=== PATIENT | male | born 1950 | race Caucasian/White ===

== ENCOUNTER 2022-04-16 16:17 | Inpatient (IN) | payer MEDICARE, OTHER ==
[~2022-04-16] VITALS: Ht 172.7 cm; Wt 44.0 kg
[2022-04-16 17:25] LABS: HEMATOCRIT 33.4 % (36.7-47.1); MEAN CORPUSCULAR HEMOGLOBIN 30.4 uug (23.8-33.4); MEAN CORPUSCULAR VOLUME 88.9 fL (73.0-96.2); PLATELET COUNT (AUTO) 168 K/uL (152-348)
[2022-04-16] MEDS ORDERED: ONDA4TAB5 PO (17:27)
[2022-04-16] MEDS ORDERED: ARIP5TAB10 PO (17:27)
[2022-04-16] MEDS ORDERED: MV-M1TAB18 PO (17:27)
[2022-04-16] MEDS ORDERED: MULT-594 PO (17:27)
[2022-04-16] MEDS ORDERED: SENN8.6T19 PO (17:27)
[2022-04-16] MEDS ORDERED: PANT40TA2 PO (17:27)
[2022-04-16] MEDS ORDERED: ACET-2154 PO (17:27)
[2022-04-16] MEDS ORDERED: MAGN400O6 PO (17:27)
[2022-04-16] MEDS ORDERED: HYDR-4209 PO (17:27)
[2022-04-16] MEDS ORDERED: SERT100T PO (17:27)
[2022-04-16] MEDS ORDERED: BISA10SU61 RC (17:27)
[2022-04-16] MEDS ORDERED: PHOS250T2 PO (17:27)
[2022-04-16] MEDS ORDERED: FERR325T28 PO (17:27)
[2022-04-16] MEDS ORDERED: TEMA15CA5 PO (17:27)
[2022-04-16] MEDS ORDERED: ALBU2.5V13 NEB (17:27)
[2022-04-16] MEDS ORDERED: LORA0.5T48 PO (17:27)
[2022-04-16] MEDS ORDERED: BISA5TAB10 PO (17:27)
[2022-04-16 17:35] LABS: CARBON DIOXIDE 29 mmol/L (21-32); CHLORIDE 103 mmol/L (98-107); CREATININE 0.9 mg/dL (0.6-1.3); GLUCOSE 100 mg/dL (74-106); UREA NITROGEN, BLOOD 19 mg/dL (7-18)
[2022-04-16 17:37] LABS: ETHANOL < 3 MG/DL (0-0)
[2022-04-16 17:40] LABS: ALANINE AMINOTRANSFERASE 12 U/L (16-63); ALKALINE PHOSPHATASE 60 U/L (50-136); ASPARTATE AMINOTRANSFERASE 12 U/L (15-37); BILIRUBIN,TOTAL 1.3 mg/dL (0.2-1.0); TOTAL PROTEIN, SERUM 6.6 g/dL (6.4-8.2)
[2022-04-16 17:46] LABS: ACETAMINOPHEN < 10.0 ug/mL (10-30)
--- NOTE | 2022-04-16 20:05 | NUR ---
Patient unable to provide urine at this time. COVID swab sent to lab.
--- NOTE | 2022-04-16 20:28 | NUR ---
Patient will be going to [place] [facility]
--- NOTE | 2022-04-16 20:42 | NUR ---
Report given to Molly WHITMORE in U
--- NOTE | 2022-04-16 21:19 | NUR ---
Patient taken to MHU via wheelchair in stable condition with personal belongings. Patient in stable conditions, no signs of distress. Molly WHITMORE aware of patients arrival.
[2022-04-16 22:04] VITALS: BP 98/64
--- NOTE | 2022-04-17 00:30 | NUR ---
ADMISSION NOTE: ADMITTED EARLIER A 71 YEARS OLD MALE TO [facility] M[facility] ON A 5150 FOR DTS. PATIENT LIVES AT AN ASSISTED LIVING CALLED "[facility]" IN [facility] PER RECORDS, PATIENTS WAS TRANSPORTED TO [facility] BY FACILITY D/T DEPRESSION PSYCHOSIS AND SI. PER HOLD, PATIENT IS DEPRESSED WITH FLAT AFFECT AND HE THINKS THAT HE HAS BOMB INSIDE HIM. HE IS SUICIDAL WITH A PLAN TO OD. HIS HOLD WILL ON 04/20/22 AT 0015. UPON ADMISSION PATIENT IS A/O X 2 TO 3. HE REFLECTS WHAT IS WRITTEN ON THE HOLD. PATIENT STATED, "I AM SAD AND DEPRESSED, I HEAR VOICES BUT I AM NOT SURE WHAT THEY ARE SAYING. I DON'T WANT TO HARM MYSELF. I AM SAD". PATIENT IS ABLE TO VERBALLY CFS. HIS DENIAL IS CONVINCING. FACE TO FACE ASSESSMENT WAS DONE, PATIENT WAS GIVEN HIS ADVISEMENT WELL HIS BOOKLET FOR PATIENT'S RIGHTS WHEN IN MENTAL HEALTH FACILITIES. PATIENT WAS COOPERATIVE WITH THE ADMISSION PROCESS. HE WAS INFORMED OF THE UNIT RULES, ROOM AND ROOMMATE. WILL CONTINUE TO MONITOR.
[2022-04-17] MEDS ORDERED: BLOOD SUGAR DIAGNOSTIC 1 EACH STRIP VI ONE (01:30)
[2022-04-17] MEDS ORDERED: ACETAMINOPHEN 325 MG TABLET PO PRN (01:30)
[2022-04-17] MEDS ORDERED: MAG HYDROX/AL HYDROX/SIMETH 30 ML LIQUID UDC PO PRN (01:30)
[2022-04-17 07:30] VITALS: BP 102/59
[2022-04-17] MEDS: DIVALPROEX SPRINKLE 125 MG CAP.SPRINK PO SCH ×2 (12:48→16:46)
[2022-04-17] MEDS: SERTRALINE HCL 50 MG TABLET PO SCH (12:49)
[2022-04-17] MEDS: risperiDONE 0.5 MG TABLET PO SCH ×2 (12:49→16:46)
[2022-04-17] MEDS ORDERED: MAGNESIUM HYDROXIDE 30 ML LIQUID UDC PO PRN (15:00)
[2022-04-17] MEDS ORDERED: ONDANSETRON HCL 4 MG TABLET PO PRN (15:00)
[2022-04-17] MEDS ORDERED: BISACODYL 10 MG SUPP.RECT RC PRN (15:00)
--- NOTE | 2022-04-17 15:07 | NUR ---
JOHN Initial Discharge Note: Pt currently resides at an assisted living located at [address] [place] [address] ([phone]). JOHN will continue to work on contacting pt's assisted living to discuss pt's discharge plan. JOHN will continue to work with pt, family and MD to ensure a safe and proper discharge plan.
--- NOTE | 2022-04-17 15:10 | NUR ---
SW Family Contact: No family contact at this time. SW will continue to follow-up.
[2022-04-17 16:00] VITALS: BP 95/73
--- NOTE | 2022-04-17 16:06 | NUR ---
Firearms Report: Combined Rail Operator completed and submitted a [employer] firearms report for 5150 a danger to himself. A copy of report has been placed in patient chart.
[2022-04-17] MEDS ORDERED: [UNRECOGNIZED DRUG - OTHER] PO SCH (17:00)
--- NOTE | 2022-04-17 17:49 | NUR ---
RECEIVED PT IN ROOM ISOLATIVE WITH A FLAT AFFECTIVE DENIES SUCIDAL IDEATION BUT STAYS ONLY IN HIS ROOM NO SIGNS OF DISTRESS NOTED DENIES PAIN. BUT IS MEDICATION COMPLIANT.
[2022-04-17 20:13] VITALS: BP 92/58
[2022-04-17] MEDS: FERROUS SULFATE 325 MG TABEC PO SCH (20:24)
[2022-04-18] MEDS: PANTOPRAZOLE SODIUM 40 MG TABLET.DR PO SCH (06:03)
--- NOTE | 2022-04-18 06:13 | NUR ---
patirnt remain calm and cooperative with meds and care. slept 7.15 hrs through the night. no agitation noted. resting in bed comfortably. continue plan of care.
[2022-04-18 08:01] VITALS: BP 92/63
[2022-04-18 08:03] LABS: HEMATOCRIT 35.3 % (36.7-47.1); MEAN CORPUSCULAR HEMOGLOBIN 29.8 uug (23.8-33.4); MEAN CORPUSCULAR VOLUME 90.4 fL (73.0-96.2); PLATELET COUNT (AUTO) 54 K/uL (152-348)
[2022-04-18 08:12] LABS: CREATININE 0.9 mg/dL (0.6-1.3); MAGNESIUM 2.2 mg/dL (1.8-2.4); PHOSPHOROUS 2.7 mg/dL (2.5-4.9); POTASSIUM 3.9 mmol/L (3.5-5.1)
[2022-04-18] MEDS: DIVALPROEX SPRINKLE 125 MG CAP.SPRINK PO SCH ×3 (08:22→16:18)
[2022-04-18] MEDS: MULTIVITAMINS,THERAPEUTIC TABLET PO SCH (08:22)
[2022-04-18] MEDS: risperiDONE 0.5 MG TABLET PO SCH ×3 (08:22→16:18)
[2022-04-18] MEDS: FERROUS SULFATE 325 MG TABEC PO SCH ×2 (08:22→21:32)
[2022-04-18 08:32] LABS: THYROID STIMULATING HORMONE 5.417 mIU/mL (0.358-3.740)
[2022-04-18] MEDS: SERTRALINE HCL 50 MG TABLET PO SCH (12:12)
--- NOTE | 2022-04-18 13:41 | NUR ---
GPS: Nursing Notes: Mood Disturbance: Depression: Patient is awake and responding to his name, isolative and withdrawn in his room, no interactions with peers, low energy level, compliant with his medications, poor appetite, resistant with nursing care, unable to formulate a viable plan for self care, verbally jairo for safety, denies SI at this time, continue to monitor for safety, refusing to participate in therapeutic groups, continue with treatment plan.l
[2022-04-18] MEDS: ENSURE ENLIVE (VAN) 240 ML LIQUID PO SCH (16:19)
[2022-04-18 16:21] VITALS: BP 98/63
[2022-04-18 20:00] VITALS: BP 110/54
--- NOTE | 2022-04-18 20:00 | NUR ---
RECEIVED PATIENT IN HIS ROOM IN BED. HE IS NOTED AWAKE A/O X 2 TO 3. HIS MOOD IS LOW, AFFECT IS FLAT. HE APPEARS DEPRESSED. HE IS WITHDRAWN AND ISOLATIVE. PATIENT IS GUARDED. MINIMAL WORDS AND INTERACTION WITH THIS DEPOSIT CLERK. HOWEVER, HE IS ABLE TO MAKE EYE CONTACT AND WHEN ASKED IF HE WAS HAVING SI HE STATED, "NO". HE ALSO DENIED HI/VH/AH. PATIENT IS REASSURED FOR HIS SAFETY. SAFETY AND FALL PRECAUTIONS ARE IN PLACE. HIS V/S ARE STABLE. HE WAS GIVEN PO FLUIDS AND SNACKS, BUT HE ONLY HAD FEW SIPS OF ENSURE. PATIENT WAS ENCOURAGE TO EAT MORE AND TO GET OUT OF THE ROOM AND WALK AROUND AND PARTICIPATE IN ACTIVITIES. ALL HIS NEEDS ARE MET. WILL CONTINUE TO MONITOR.
[2022-04-19] MEDS: PANTOPRAZOLE SODIUM 40 MG TABLET.DR PO SCH (06:16)
[2022-04-19 07:52] VITALS: BP 90/52
[2022-04-19 07:52] LABS: HEMATOCRIT 30.8 % (36.7-47.1); MEAN CORPUSCULAR HEMOGLOBIN 29.9 uug (23.8-33.4); MEAN CORPUSCULAR VOLUME 90.2 fL (73.0-96.2); PLATELET COUNT (AUTO) 214 K/uL (152-348)
[2022-04-19 08:10] LABS: CREATININE 1.1 mg/dL (0.6-1.3); MAGNESIUM 2.3 mg/dL (1.8-2.4); PHOSPHOROUS 2.7 mg/dL (2.5-4.9)
[2022-04-19] MEDS: FERROUS SULFATE 325 MG TABEC PO SCH ×2 (08:36→20:17)
[2022-04-19] MEDS: DIVALPROEX SPRINKLE 125 MG CAP.SPRINK PO SCH ×3 (08:36→16:32)
[2022-04-19] MEDS: MULTIVITAMINS,THERAPEUTIC TABLET PO SCH (08:36)
[2022-04-19] MEDS: risperiDONE 0.5 MG TABLET PO SCH ×3 (08:36→16:31)
[2022-04-19] MEDS: ENSURE ENLIVE (VAN) 240 ML LIQUID PO SCH ×2 (08:37→16:32)
[2022-04-19] MEDS ORDERED: levETIRAcetam 500 MG TABLET PO ONE (10:30)
--- NOTE | 2022-04-19 11:23 | NUR ---
GPS: Nursing Notes: Mood Disturbance: Depression: Patient is awake and responding to his name, depressed mood and flat affect, isolative and withdrawn in his room, low energy level, poor appetite, no interactions with staff or peers, resistant with nursing care, poor grooming, unkempt appearance, unable to formulate a viable plan for self care, compliant with his medications, denies SI, continue to monitor for safety, continue with treatment plan.
[2022-04-19] MEDS: SERTRALINE HCL 50 MG TABLET PO SCH (13:10)
[2022-04-19] MEDS: MAGNESIUM HYDROXIDE 30 ML LIQUID UDC PO PRN (16:32)
[2022-04-19] MEDS: BISACODYL 5 MG TABLET.DR PO PRN (16:32)
[2022-04-19 16:35] VITALS: BP 90/62
[2022-04-19 19:50] VITALS: BP 92/54
--- NOTE | 2022-04-19 21:00 | NUR ---
RECEIVED PATIENT IN HIS ROOM IN BED. HE IS NOTED AWAKE A/O X 2 TO 3. HE IS ABLE TO VERBALIZED HIS FEELINGS. HE APPEARS DEPRESSED. HE CONTINUE WITHDRAWN AND ISOLATIVE. PATIENT IS SUSPICIOUS, POOR APPETITE, IMPAIRED JUDGMENT. WHEN GIVEN ENSURED HE STATED, "THIS ENSURE IS NOT SAFE TO DRINK". PATIENT WAS REDIRECTED AND ORIENTED TO REALITY, YET REFUSED TO DRINK EVEN WHEN ANOTHER ENSURE WERE OFFERED. HIS AFFECT IS FLAT, MOOD IS LOW. PATIENT STATED THAT HE DOES HEAR VOICES BUT HE CAN'T TELL WHAT THEY ARE SAYING. HE IS REASSURED FOR HIS SAFETY. SAFETY AND FALL PRECAUTIONS ARE IN PLACE. HIS V/S ARE STABLE. HE WAS GIVEN PO FLUIDS AND SNACKS, BUT HE ONLY HAD ONE CRACKER. ALL HIS NEEDS ARE MET. WILL CONTINUE TO MONITOR.
[2022-04-20] MEDS: SENNOSIDES 1 TABLET PO PRN (04:13)
[2022-04-20] MEDS: PANTOPRAZOLE SODIUM 40 MG TABLET.DR PO SCH (07:02)
[2022-04-20 07:59] VITALS: BP 91/58
[2022-04-20] MEDS: DIVALPROEX SPRINKLE 125 MG CAP.SPRINK PO SCH ×3 (08:40→17:12)
[2022-04-20] MEDS: MULTIVITAMINS,THERAPEUTIC TABLET PO SCH (08:40)
[2022-04-20] MEDS: risperiDONE 0.5 MG TABLET PO SCH (08:40)
[2022-04-20] MEDS: FERROUS SULFATE 325 MG TABEC PO SCH ×2 (08:40→20:36)
[2022-04-20] MEDS: ENSURE ENLIVE (VAN) 240 ML LIQUID PO SCH ×2 (08:41→17:00)
[2022-04-20] MEDS ORDERED: levETIRAcetam 500 MG TABLET PO SCH (09:00)
[2022-04-20] MEDS: LORAZEPAM 0.5 MG TABLET PO SCH ×3 (11:14→17:12)
[2022-04-20 11:51] LABS: CREATININE 1.2 mg/dL (0.6-1.3); MAGNESIUM 2.6 mg/dL (1.8-2.4); PHOSPHOROUS 2.8 mg/dL (2.5-4.9); POTASSIUM 3.8 mmol/L (3.5-5.1); TOTAL PROTEIN, SERUM 7.1 g/dL (6.4-8.2)
[2022-04-20] MEDS: risperiDONE-M 0.5 MG TAB.RAPDIS PO SCH ×2 (12:48→17:12)
[2022-04-20] MEDS: VENLAFAXINE XR 75 MG TAB.ER.24H PO SCH (12:48)
[2022-04-20 16:04] VITALS: BP 117/96
--- NOTE | 2022-04-20 17:35 | NUR ---
GPS: Nursing Notes: Mood Disturbance: Depression: Patient is awake and responding to his name, depressed mood and flat affect, resistant with nursing care, low energy level, unable to formulate a viable plan for self care, isolative and withdrawn, present in therapeutic groups, but not participating, gets easily irritable when redirected, resistant with nursing care, continue with treatment plan.
[2022-04-20 19:40] VITALS: BP 95/55
[2022-04-20] MEDS: TEMAZEPAM 7.5 MG CAPSULE PO PRN (20:36)
--- NOTE | 2022-04-21 05:44 | NUR ---
GPS NOTES: Received pt. in the gerichair for safety near the nursing station, he is A&0x3, he is pleasant upon approached. He is thin and frail looking, attempt to stand but unable d/t weakness. Patient reminded of his capabilities. Patient offered snacks and fluids, he is compliant and consumes 100% of snacks provided. Patient needs assistance to his ADL's. Patient denies SI and contract safety strategies with the fha underwriter. He is med compliant. Temazepam given. Effective. Patient slept well during shift. No distress noted. Closely monitoring observed.
[2022-04-21] MEDS: PANTOPRAZOLE SODIUM 40 MG TABLET.DR PO SCH (06:19)
[2022-04-21 07:53] LABS: HEMATOCRIT 32.4 % (36.7-47.1); MEAN CORPUSCULAR VOLUME 88.2 fL (73.0-96.2); PLATELET COUNT (AUTO) 246 K/uL (152-348)
[2022-04-21 08:00] VITALS: BP 101/64
[2022-04-21 08:11] LABS: MAGNESIUM 2.4 mg/dL (1.8-2.4); PHOSPHOROUS 2.3 mg/dL (2.5-4.9)
[2022-04-21] MEDS: risperiDONE-M 0.5 MG TAB.RAPDIS PO SCH ×3 (09:32→16:55)
[2022-04-21] MEDS: DIVALPROEX SPRINKLE 125 MG CAP.SPRINK PO SCH ×3 (09:32→16:55)
[2022-04-21] MEDS: MULTIVITAMINS,THERAPEUTIC TABLET PO SCH (09:32)
[2022-04-21] MEDS: LORAZEPAM 0.5 MG TABLET PO SCH ×3 (09:32→16:56)
[2022-04-21] MEDS: FERROUS SULFATE 325 MG TABEC PO SCH ×2 (09:32→21:09)
[2022-04-21] MEDS: ENSURE ENLIVE (VAN) 240 ML LIQUID PO SCH ×2 (09:33→16:58)
--- NOTE | 2022-04-21 11:23 | NUR ---
JOHN Family Contact: JOHN contacted pt' niece, Breanne ([phone]) and left a voicemail for a call back. JOHN will continue to follow-up with Breanne.
[2022-04-21] MEDS: VENLAFAXINE XR 75 MG TAB.ER.24H PO SCH (12:57)
--- NOTE | 2022-04-21 14:17 | NUR ---
GPS: Nursing Notes: Mood Disturbance: Depression: Patient is awake and responding to his name, A/Ox3, cooperative with nursing care, his appetite has increased, eating his meals, depressed mood and blunted affect, selectively compliant with his medications at 1 PM, stated "I think.. I am getting too many pills.." Explained the pros and cons of medications, but continue to be selectively compliant with Effexor, unable to formulate a viable plan for self care, ambulatory with fww, stated "Those pills in the morning made me weak..", participate in therapeutic groups, needs assistance with ADL's, verbally jairo for safety, denies SI, continue to monitor for safety, continue with treatment plan.
[2022-04-21 16:00] VITALS: BP 105/65
[2022-04-21] MEDS ORDERED: NEUTRA PHOS PACKET PO ONE (16:30)
[2022-04-21 19:52] VITALS: BP 99/57
[2022-04-21] MEDS: BISACODYL 5 MG TABLET.DR PO PRN (21:09)
--- NOTE | 2022-04-22 02:32 | NUR ---
Patient was c/o different things at the start of the shift . Constipation, food, incontinence, inability to empty the bladder, overactive bladder and so on. This gag writer brought the patient out of the room in a hu- chair and shaved the patient, plus encouraged oral hydration with assistance. The patient did verbalize not wanting to live on minute , then stated " I do not want to , I want to keep living." Many times during the conversation ,with this gag writer, the patient contradicted himself. Safety Stratiges are in place at this time. A verbal contract for safety was made between the patient and this gag writer. Continuing to assist the patient with all ADLs and feedings. The patient has been compliant with medications.
[2022-04-22] MEDS: PANTOPRAZOLE SODIUM 40 MG TABLET.DR PO SCH (06:18)
[2022-04-22 07:30] VITALS: BP 104/66
[2022-04-22] MEDS: LORAZEPAM 0.5 MG TABLET PO SCH ×3 (09:26→17:42)
[2022-04-22] MEDS: MULTIVITAMINS,THERAPEUTIC TABLET PO SCH (09:27)
[2022-04-22] MEDS: risperiDONE-M 0.5 MG TAB.RAPDIS PO SCH ×3 (09:27→17:42)
[2022-04-22] MEDS: FERROUS SULFATE 325 MG TABEC PO SCH ×2 (09:27→20:15)
[2022-04-22] MEDS: DIVALPROEX SPRINKLE 125 MG CAP.SPRINK PO SCH ×3 (09:28→17:42)
[2022-04-22] MEDS: ENSURE ENLIVE (VAN) 240 ML LIQUID PO SCH ×2 (09:29→17:42)
--- NOTE | 2022-04-22 13:00 | NUR ---
Patient had court hearing today, and enrollment management coordinator gave 14 Day probable cause for GD only.
[2022-04-22 13:06] LABS: A/G RATIO 1.4 (0.7-1.7); ALBUMIN 3.4 g/dL (2.9-4.4); ALPHA-1-GLOBULIN 0.2 g/dL (0.0-0.4); ALPHA-2-GLOBULIN 0.7 g/dL (0.4-1.0); BETA GLOBULIN 0.8 g/dL (0.7-1.3); GAMMA GLOBULIN 0.7 g/dL (0.4-1.8); GLOBULIN, TOTAL 2.4 g/dL (2.2-3.9); M-SPIKE Not Observed g/dL (Not Observed)
[2022-04-22] MEDS: VENLAFAXINE XR 75 MG TAB.ER.24H PO SCH (13:20)
[2022-04-22 16:00] VITALS: BP 90/61
--- NOTE | 2022-04-22 18:15 | NUR ---
GPS: Nursing Notes: Mood Disturbance: Depression: Receive patient awake in room,response to his name A/Ox3. Patient continent and incontinent, needs maximum assistance with ADL's. Patient can walk with 1 person assist and a walker but uses a wheelchair to wheel himself. Patient is depress, stays in his room and refuses to participate in group activities.Patient is compliant with medications but needs a lot of prompting. Patient stayed " I have fecal matter and this medications are going to make it worse", Sorry It was nice knowing you I am going to with this medications".Patient is unable to formulate a viable plan for self care.Unkept appearance.Continue to monitor for safety, continue with treatment plan
[2022-04-22 20:08] VITALS: BP 90/50
--- NOTE | 2022-04-22 20:30 | NUR ---
RECEIVED PATIENT IN HIS ROOM IN BED. HE IS NOTED SLEEPING BUT EASILY AROUSABLE. PATIENT NOTED A/O X 2. HE CONTINUE WITHDRAWN AND ISOLATIVE. PT APPEARS DEPRESSED. WHEN INTERVIEW, HE DENIED SI/HI/VH/AH. HE STATED, "I AM FEELING SLEEPY TODAY". PATIENT'S V/S ARE STABLE. HE IS IN NO DISTRESS. HE IS REASSURED FOR HIS SAFETY. SAFETY AND FALL PRECAUTIONS ARE IN PLACE. HE WAS GIVEN PO FLUIDS AND SNACKS, AND HE WAS ABLE TO HAVE FEW SNACKS. HIS APPETITE IS IMPROVING. ALL HIS NEEDS ARE MET. WILL CONTINUE TO MONITOR.
[2022-04-22] MEDS ORDERED: risperiDONE 1 MG TABLET PO SCH (21:00)
[2022-04-23] MEDS: PANTOPRAZOLE SODIUM 40 MG TABLET.DR PO SCH (07:25)
[2022-04-23 07:30] VITALS: BP 83/51
[2022-04-23 07:51] LABS: HEMATOCRIT 28.3 % (36.7-47.1); MEAN CORPUSCULAR HEMOGLOBIN 30.4 uug (23.8-33.4); MEAN CORPUSCULAR VOLUME 88.6 fL (73.0-96.2); PLATELET COUNT (AUTO) 172 K/uL (152-348)
[2022-04-23 08:02] LABS: CREATININE 0.9 mg/dL (0.6-1.3); MAGNESIUM 1.8 mg/dL (1.8-2.4); PHOSPHOROUS 1.8 mg/dL (2.5-4.9); POTASSIUM 3.6 mmol/L (3.5-5.1)
[2022-04-23] MEDS: LORAZEPAM 0.5 MG TABLET PO SCH ×3 (09:04→17:00)
[2022-04-23] MEDS: DIVALPROEX SPRINKLE 125 MG CAP.SPRINK PO SCH ×3 (09:04→17:00)
[2022-04-23] MEDS: MULTIVITAMINS,THERAPEUTIC TABLET PO SCH (09:05)
[2022-04-23] MEDS: risperiDONE-M 0.5 MG TAB.RAPDIS PO SCH ×3 (09:05→17:00)
[2022-04-23] MEDS: FERROUS SULFATE 325 MG TABEC PO SCH ×2 (09:05→22:08)
[2022-04-23] MEDS: ENSURE ENLIVE (VAN) 240 ML LIQUID PO SCH ×2 (09:07→18:03)
[2022-04-23] MEDS: VENLAFAXINE XR 75 MG TAB.ER.24H PO SCH (12:58)
--- NOTE | 2022-04-23 13:00 | NUR ---
Received Patient awake sitting in bed,depressed,blunted affect. Patient is continent with care,needs maximum assistant corporate controller with ADLs,unkept appearance.Patient is med compliant but needs prompting.Patient does not attend group activities but did had breakfast in the dinning room. Continue to monitor for safety, Continue with treatment plan.
[2022-04-23 16:00] VITALS: BP 85/55
[2022-04-23] MEDS ORDERED: NEUTRA PHOS PACKET PO ONE (16:00)
--- NOTE | 2022-04-23 16:41 | NUR ---
Pt found lying on the floor in the doorway of another pt room. Pt appears confused and disorganized, stated that he was trying to get up to walk to his room. Noted hypotensive with bp of 83/55, noted symptomatic with mild vertigo. Noted skin tear abrasions to left lateral portions of face. No excessive bleeding noted. Pt denies pain or discomfort at this time. Called [facility] and received order for state head CT to r/o bleeding and x1 NS 500cc bolus. Order noted and will carry out. Called and informed pt's point of contact his niece Breanne, and she is notified. Called refrigeration houseman Suzy and she is notified as well. Called. Dr. Luna and she is notifed. In no acute distress.
[2022-04-23] MEDS ORDERED: IV NORMAL SALINE 500 ML IV ONE (17:00)
[2022-04-23 20:03] VITALS: BP 78/48
--- NOTE | 2022-04-23 20:15 | NUR ---
IV INSERTION WAS DONE WITH 22G IV NEEDLE ON RIGHT LOWER FOREARM FOR AND EARLIER ORDER TO INFUSED 500CC NS IV BOLUS. PATIENT WAS COOPERATIVE. HE TOLERATED INSERTION WELL. STILL MISSING IV POLL. CALLED MED SURG FLOOR BUT THEY STARED THEY DON'T HAVE ONE. CALL ER AND THEY DON'T HAVE ONE. CALLED HS EXTENSION AND STAFF STATED THAT HE WILL LET HER KNOW. WILL CONTINUE TO MONITOR.
--- NOTE | 2022-04-23 20:40 | NUR ---
CALLED HS. SHE STATED TO GO CHECKS ICU FOR THEY MAY HAVE AN IV POLE. WENT TO ICU AND AN IV INFUSION PUMP WAS FOUND. WILL BRING TO UNIT, ONCE IS DISINFECTED, TO START IV BOLUS WITH 500CC NS PER MD ORDERED. WILL CONTINUE TO MONITOR CLOSELY.
--- NOTE | 2022-04-23 21:30 | NUR ---
RECEIVED PATIENT SITTING IN A ELLA CHAIR. HE IS NOTED A/O X2. HE IS CALM AND PLEASANT UPON APPROACHED. HE APPEARS DEPRESSED WITH FLAT AFFECT. HE CONTINUE FIXED ON NOT HAVING A BM. HE STATED, "I CAN'T GO. EVERYTHING IS STILL INSIDE. IT WILL COME OUT BIG". PATIENT IS REASSURED AND REDIRECTED. HE NEEDS CONSTANT REALITY ORIENTATION. PT V/S NOTED OM THE LOW SIDE. HE IS ASYMPTOMATIC IN NO DISTRESS. 500CC NS IV FLUIDS IS STARED. PATIENT WAS ALSO GIVEN PO FLUIDS, ENSURED AND WATER, AND SNACKS. HE IS REASSURED FOR HIS SAFETY. SAFETY AND FALL PRECAUTIONS IN PLACE. WILL CONTINUE TO MONITOR.
[2022-04-23 22:00] VITALS: BP 88/74
--- NOTE | 2022-04-23 22:00 | NUR ---
500CC NS IV BOLUS IS DONE, PATIENT TOLERATED WELL. V/S: B/P 88/74 AND PULSE 68BPM. PT IN NO DISTRESS. WILL CONTINUE TO MONITOR.
[2022-04-23] MEDS: BISACODYL 5 MG TABLET.DR PO PRN (22:07)
--- NOTE | 2022-04-23 22:10 | NUR ---
PATIENT WAS GIVEN DULCOLAX PO PRN FOR CONSTIPATION. HE WAS ASSISTED TO THE BATHROOM WHERE HE VOIDED AND HE WAS ASSISTED TO HIS BED. BED ALARM ON. HIS BED WHEELS ARE LOCKED. WILL CONTINUE WITH FREQUENT ROUNDING.
--- NOTE | 2022-04-24 06:04 | NUR ---
Patient slept for approx 7.30. through the night. # abrasions in forehead were cleaned with NS and covered with bandage. patient's B/P is 90/56 and pulse is 64bpm patient is in no distress. Saline locked on his rt forearm was flushed. It is patent and intact. Will continue to monitor.
[2022-04-24] MEDS: PANTOPRAZOLE SODIUM 40 MG TABLET.DR PO SCH (06:51)
[2022-04-24 06:59] LABS: HEMATOCRIT 26.8 % (36.7-47.1); MEAN CORPUSCULAR HEMOGLOBIN 30.3 uug (23.8-33.4); MEAN CORPUSCULAR VOLUME 88.3 fL (73.0-96.2); PLATELET COUNT (AUTO) 171 K/uL (152-348)
[2022-04-24 07:30] VITALS: BP 88/53
[2022-04-24 07:38] LABS: CREATININE 0.8 mg/dL (0.6-1.3); MAGNESIUM 1.8 mg/dL (1.8-2.4)
[2022-04-24] MEDS: DIVALPROEX SPRINKLE 125 MG CAP.SPRINK PO SCH ×3 (09:17→17:10)
[2022-04-24] MEDS: FERROUS SULFATE 325 MG TABEC PO SCH ×2 (09:18→20:40)
[2022-04-24] MEDS: ENSURE ENLIVE (VAN) 240 ML LIQUID PO SCH ×2 (09:18→17:15)
[2022-04-24] MEDS: MULTIVITAMINS,THERAPEUTIC TABLET PO SCH (09:19)
--- NOTE | 2022-04-24 10:05 | NUR ---
JOHN Family Contact: JOHN contacted pt' niece, Breanne ([phone]) and left a second voicemail for a call back regarding pt's discharge plan. JOHN will continue to follow-up with Breanne.
[2022-04-24] MEDS: VENLAFAXINE XR 150 MG CAP.SR.24H PO SCH (12:31)
[2022-04-24] MEDS ORDERED: NEUTRA PHOS PACKET PO ONE (14:00)
--- NOTE | 2022-04-24 14:07 | NUR ---
Gps/Insole Department Worker- Remains up in his hu-chair for safety, fluids offered and encouraged.Monitored vital signs.
[2022-04-24 16:00] VITALS: BP 91/63
--- NOTE | 2022-04-24 16:16 | NUR ---
Gps/Pourer Bull Ladle- Patient's daughter Madyson came to bean picker machine operator car keys(Ernesto baird) , ok'd by patient. Patient waved hello to her daughter by the main door . Madyson(daughter) was able to initial belonging list (Reginald) Addendum: 04/24/22 at 1621 by SANJUANA ALANIZ LVN Error charted on a wrong patient
[2022-04-24] MEDS: SENNOSIDES 1 TABLET PO PRN (20:40)
[2022-04-24] MEDS: OLANZAPINE 2.5 MG TABLET PO SCH (20:43)
[2022-04-24 20:56] VITALS: BP 94/65
--- NOTE | 2022-04-25 04:33 | NUR ---
Patient has richa showing improvement in oral intake of food. No BM noted for many days. Dulcolax suppository given with small results. Stool noted directly inside the rectum. Patient tolerated the procedure well. Dinorah care provided and a Mepilex was applied to the coccyx for protection. No skin breakdown noted. Safety Stratiges are in place. The patient denied SI and made a verbal contract for safety with this software writer. Continuing to monitor intake and output and assist with needs as they arise.
[2022-04-25] MEDS: PANTOPRAZOLE SODIUM 40 MG TABLET.DR PO SCH (06:00)
[2022-04-25 07:38] LABS: CREATININE 0.8 mg/dL (0.6-1.3); MAGNESIUM 1.9 mg/dL (1.8-2.4); PHOSPHOROUS 3.2 mg/dL (2.5-4.9); POTASSIUM 4.3 mmol/L (3.5-5.1)
[2022-04-25 07:40] VITALS: BP 98/68
[2022-04-25 07:42] LABS: MEAN CORPUSCULAR HEMOGLOBIN 30.5 uug (23.8-33.4); MEAN CORPUSCULAR VOLUME 88.4 fL (73.0-96.2); PLATELET COUNT (AUTO) 215 K/uL (152-348)
[2022-04-25] MEDS: DIVALPROEX SPRINKLE 125 MG CAP.SPRINK PO SCH ×3 (09:25→16:56)
[2022-04-25] MEDS: FERROUS SULFATE 325 MG TABEC PO SCH ×2 (09:25→20:41)
[2022-04-25] MEDS: MULTIVITAMINS,THERAPEUTIC TABLET PO SCH (09:27)
[2022-04-25] MEDS: ENSURE ENLIVE (VAN) 240 ML LIQUID PO SCH ×2 (09:28→16:57)
[2022-04-25] MEDS: VENLAFAXINE XR 150 MG CAP.SR.24H PO SCH (12:52)
--- NOTE | 2022-04-25 13:22 | NUR ---
Gps/Nursing- Encouraged to feed self, assisted with her meals, fluids offered and encouraged, compliant with pm routine meds, interacts when engaged, answers to simple question . Stayed in bed most of the morning
[2022-04-25 16:04] VITALS: BP 101/65
[2022-04-25 20:19] VITALS: BP 98/69
[2022-04-25] MEDS: OLANZAPINE 2.5 MG TABLET PO SCH (20:41)
--- NOTE | 2022-04-26 04:06 | NUR ---
Patient has been up and down during the night. Multiple bowel movements. Frequent turning and repositioning done to prevent skin breakdown. Shower given this am. Safety Stratiges are in place. Patient is denying SI at this time. PO food and fluid encouraged.
[2022-04-26] MEDS: PANTOPRAZOLE SODIUM 40 MG TABLET.DR PO SCH ×2 (06:05→06:24)
[2022-04-26 08:17] VITALS: BP 91/47
[2022-04-26] MEDS: DIVALPROEX SPRINKLE 125 MG CAP.SPRINK PO SCH ×3 (08:41→17:13)
[2022-04-26] MEDS: MULTIVITAMINS,THERAPEUTIC TABLET PO SCH (08:41)
[2022-04-26] MEDS: ENSURE ENLIVE (VAN) 240 ML LIQUID PO SCH ×2 (08:42→17:14)
[2022-04-26] MEDS: FERROUS SULFATE 325 MG TABEC PO SCH ×2 (08:42→21:23)
[2022-04-26] MEDS: VENLAFAXINE XR 150 MG CAP.SR.24H PO SCH (12:32)
--- NOTE | 2022-04-26 15:14 | NUR ---
Gps/Axle Inspector-Kept patient in his group activity, poor initiation, assited with his meals, fluids offered and encouraged, hesitancy in taking his routine meds. , flat guarded , answers to simple questions, one step commands
[2022-04-26 16:09] VITALS: BP 96/70
[2022-04-26 19:43] VITALS: BP 101/68
[2022-04-26] MEDS: OLANZAPINE 2.5 MG TABLET PO SCH (21:23)
--- NOTE | 2022-04-27 01:28 | NUR ---
Patient has been paranoid and hearing voices since the start of the shift. Much education and encouragement was needed in order for the patient to take his PM medications. The patient has been refusing fluid and snack tonight. Multiple diaper changes, and frequent rita care provided. Optifoam dressing applied to bony coccyx to prevent breakdown. Safety Stratiges are in place and ongoing monitoring of PO intake and increase in paranoia. No SI at this time.
[2022-04-27] MEDS: PANTOPRAZOLE SODIUM 40 MG TABLET.DR PO SCH ×2 (06:02→06:06)
[2022-04-27 07:48] VITALS: BP 92/49
[2022-04-27] MEDS: MULTIVITAMINS,THERAPEUTIC TABLET PO SCH (08:45)
[2022-04-27] MEDS: FERROUS SULFATE 325 MG TABEC PO SCH ×2 (08:45→20:52)
[2022-04-27] MEDS: DIVALPROEX SPRINKLE 125 MG CAP.SPRINK PO SCH ×3 (08:45→16:18)
[2022-04-27] MEDS: ENSURE ENLIVE (VAN) 240 ML LIQUID PO SCH ×2 (08:46→16:18)
--- NOTE | 2022-04-27 10:12 | NUR ---
SW Family Contact: SW contacted pt' niece, Breanne ([phone]) regarding pt's update and discharge plan. Breanne stated she is the DPOA for the pt and she will email this SW the paperwork. Breanne stated pt currently resides at an Assisted living called [facility] ([phone]) located at [address] [place] [address]. Breanne is aware and agreeable that pt may need a temporary penitentiary facility prior to returning to assisted living. Psychiatrist, Dr. Luna is aware.
--- NOTE | 2022-04-27 10:13 | NUR ---
JOHN Family Contact: JOHN contacted pt' niece, Breanne ([phone]) and discussed pt's discharge plan. Breanne stated she is the DPOA for the pt. Breanne provided her email for this SW to contact her for the DPOA paperwork. Breanne stated pt currently resides at [facility] [phone] where has has lived for 2 years. Breanne is agreeable to a temporary jail facility for the pt if recommended by the psychiatrist prior to returning to [facility]. Breanne also provided an additional contact from the facility, [facility] ([phone]). Breanne stated she lives in [place] but the pt does have siblings in [place], [place]. JOHN informed Breanne this typewriter operator automatic will continue to stay in contact with Breanne. SW informed Breanne on a few details per nursing regarding pt's treatment update. Breanne was grateful.
[2022-04-27] MEDS: VENLAFAXINE XR 150 MG CAP.SR.24H PO SCH (12:31)
--- NOTE | 2022-04-27 12:32 | NUR ---
JOHN Discharge Update: Pt currently resides at an Assisted living called [facility] ([phone]) located at [address] [place] [address]. JOHN spoke with pt's nurse, Adebayo at the assisted [facility] regarding pt's return upon discharge. Adebayo is aware that pt may need a temporary fpc facility prior to return to [facility]. Adebayo agrees and stated she will need to evaluate pt prior to returning back to [facility]. Psychiatrist, Dr. Luna is aware and recommended pt to [facility] for temporary continuation of care post discharge from [facility]. [facility] pharmacy: [facility] ([phone]). Assisted living fax: [phone].
--- NOTE | 2022-04-27 13:48 | NUR ---
GPS: Nursing Notes: Mood Disturbance: Depression: Patient is awake and responding to his name, depressed mood and blunted affect, low energy level, no interactions with peers, isolative and withdrawn at times, minimal participation in therapeutic groups, unable to formulate a viable plan for self care, denies SI, verbally jairo for safety, continue to monitor for safety, ambulatory with fww and assistance, unsteady and weak gait, appetite is poor, unkempt appearance, resistant with nursing care at times, redirected during shift, gets easily irritable when redirected, continue with treatment plan.
[2022-04-27 16:02] VITALS: BP 94/63
[2022-04-27 20:07] VITALS: BP 95/69
[2022-04-27] MEDS ORDERED: OLANZAPINE 2.5 MG TABLET PO SCH (21:00)
[2022-04-27] MEDS ORDERED: OLANZAPINE 5 MG TABLET PO SCH (21:00)
[2022-04-27 21:30] VITALS: BP 98/64
--- NOTE | 2022-04-27 22:00 | NUR ---
RECEIVED PATIENT IN THE DAY ROOM. HE IS NOTED A/O X 1 TO 2. HE IS CALM AND PLEASANT UPON APPROACHED. PATIENT NOTED LESS ISOLATIVE LESS WITHDRAWN. HE CONTINUE WITH DELUSIONAL THINKING. HIS SPEECH IS DISORGANIZED. AFFECT IS BLUNTED, MOOD IS LOW. HE DENIED SI/HI/VH/AH. PATIENT BP IS LOW FORM SBP OF 91 TO 95 TO 99MMHG THE HIGHEST, PT IS ASYMPTOMATIC IN NO DISTRESS. ZYPREXA 5MG PO QHS WAS NOT GIVEN D/T DECREASED BP. HE WAS GIVEN PO FLUIDS AND SNACKS. PT HAD 3 BOTTLES OF ENSURE AND GRAM CRACKERS. HE IS REASSURED FOR HIS SAFETY, SAFETY AND FALL PRECAUTIONS ARE IN PLACE. WILL CONTINUE TO MONITOR.
[2022-04-28] MEDS: PANTOPRAZOLE SODIUM 40 MG TABLET.DR PO SCH (06:18)
[2022-04-28 07:23] VITALS: BP 92/55
[2022-04-28] MEDS: ENSURE ENLIVE (VAN) 240 ML LIQUID PO SCH ×2 (08:11→16:36)
[2022-04-28] MEDS: MULTIVITAMINS,THERAPEUTIC TABLET PO SCH (08:11)
[2022-04-28] MEDS: FERROUS SULFATE 325 MG TABEC PO SCH ×2 (08:11→20:23)
[2022-04-28] MEDS: DIVALPROEX SPRINKLE 125 MG CAP.SPRINK PO SCH ×3 (08:11→16:36)
[2022-04-28] MEDS: VENLAFAXINE XR 150 MG CAP.SR.24H PO SCH (12:37)
--- NOTE | 2022-04-28 15:16 | NUR ---
GPS: Nursing Notes: Mood Disturbance: Depression: Patient is awake and responding to his name, depressed mood, flat affect, poor appetite, resistant with nursing care, no interactions with peers, needs a lot of prompting to participate in therapeutic groups, low energy level, unable to formulate a viable plan for self care, isolative and withdrawn at times, continue to monitor for safety, continue with treatment plan.
[2022-04-28 15:52] VITALS: BP 91/53
[2022-04-28] MEDS: LORAZEPAM 0.5 MG TABLET PO PRN (16:36)
[2022-04-28] MEDS: BISACODYL 5 MG TABLET.DR PO PRN (16:36)
[2022-04-28] MEDS: OLANZAPINE 2.5 MG TABLET PO SCH (20:23)
[2022-04-28 20:41] VITALS: BP 105/77
--- NOTE | 2022-04-28 21:30 | NUR ---
RECEIVED PATIENT IN THE HALLWAY SITTING IN A ELLA CHAIR. HE IS NOTED A/O X 1. HE IS HYPERVERBAL WITH DELUSIONAL THINKING. HE IS NONSENSICAL AT TIMES, HIS SPEECH IS DISORGANIZED. AFFECT IS BLUNTED, MOOD IS LOW. HE IS REASSURED FOR HIS SAFETY. V/S ARE STABLE. PT HAD 1 BOTTLES OF ENSURE. IV SALINE LOCKED PLACED IN RIGHT FOREARM IS INTACT AND PATENT. OPTIFOAM DRESSING ON COCCYX TO PREVENT SKIN BREAKDOWN IS IN PLACE. SAFETY AND FALL PRECAUTIONS ARE IN PLACE. ALL HIS NEEDS ARE MET. WILL CONTINUE TO MONITOR.
[2022-04-29] MEDS: PANTOPRAZOLE SODIUM 40 MG TABLET.DR PO SCH (07:00)
[2022-04-29 07:30] VITALS: BP 97/69
--- NOTE | 2022-04-29 07:51 | NUR ---
patient refused blood drawn and protonix. multiple redirection given yet ineffective.
[2022-04-29] MEDS: MULTIVITAMINS,THERAPEUTIC TABLET PO SCH ×2 (08:47→09:00)
[2022-04-29] MEDS: DIVALPROEX SPRINKLE 125 MG CAP.SPRINK PO SCH ×4 (08:47→17:38)
[2022-04-29] MEDS: FERROUS SULFATE 325 MG TABEC PO SCH ×3 (08:47→20:32)
[2022-04-29] MEDS: ENSURE ENLIVE (VAN) 240 ML LIQUID PO SCH ×2 (08:48→17:39)
[2022-04-29] MEDS: VENLAFAXINE XR 150 MG CAP.SR.24H PO SCH (12:20)
[2022-04-29 13:38] LABS: IRON, SERUM 48 ug/dL (50-175)
[2022-04-29 14:05] LABS: FERRITIN 411 ng/mL (26-388)
--- NOTE | 2022-04-29 14:52 | NUR ---
Received patient sleeping in his room. A/O X 3 to person, place. Patient is withdrawn, depressed, quiet, selective and suspicious with medications, refused them this morning. Patient states "I'm taking too many pills. I don't need them". Patient requires minimal assistance with ADL. Patient is encourage to verbalize concerns. Fall and safety precautions implemented.
--- NOTE | 2022-04-29 15:38 | NUR ---
Patient blood pressure is 88/52, fluids are given, will be monitored for effectiveness.
[2022-04-29 16:00] VITALS: BP 88/52
[2022-04-29] MEDS: LORAZEPAM 0.5 MG TABLET PO PRN (20:32)
[2022-04-29] MEDS: OLANZAPINE 2.5 MG TABLET PO SCH (20:32)
[2022-04-29 21:11] VITALS: BP 90/50
[2022-04-30] MEDS: PANTOPRAZOLE SODIUM 40 MG TABLET.DR PO SCH (07:16)
[2022-04-30 07:30] VITALS: BP 94/56
[2022-04-30] MEDS: DIVALPROEX SPRINKLE 125 MG CAP.SPRINK PO SCH ×3 (09:36→17:35)
[2022-04-30] MEDS: MULTIVITAMINS,THERAPEUTIC TABLET PO SCH (09:37)
[2022-04-30] MEDS: FERROUS SULFATE 325 MG TABEC PO SCH ×2 (09:37→20:35)
[2022-04-30] MEDS: ENSURE ENLIVE (VAN) 240 ML LIQUID PO SCH ×2 (09:37→17:35)
[2022-04-30] MEDS: VENLAFAXINE XR 150 MG CAP.SR.24H PO SCH (12:45)
[2022-04-30 16:00] VITALS: BP 77/52
[2022-04-30 20:19] VITALS: BP 90/56
[2022-04-30] MEDS ORDERED: OLANZAPINE 5 MG TABLET PO SCH (21:00)
--- NOTE | 2022-05-01 06:20 | NUR ---
GPS: Pt.slept 6.30 last night. Remains isolative,withdrawn but denies wanting to harm self. Fluids taken adequately. Med.compliant. Fall precautions observed. Needs attended. Incontinence care provided.
[2022-05-01] MEDS: PANTOPRAZOLE SODIUM 40 MG TABLET.DR PO SCH (06:36)
[2022-05-01 07:30] VITALS: BP 90/64
[2022-05-01] MEDS: FERROUS SULFATE 325 MG TABEC PO SCH ×2 (09:25→20:24)
[2022-05-01] MEDS: MULTIVITAMINS,THERAPEUTIC TABLET PO SCH (09:25)
[2022-05-01] MEDS: DIVALPROEX SPRINKLE 125 MG CAP.SPRINK PO SCH ×3 (09:26→17:38)
[2022-05-01] MEDS: ENSURE ENLIVE (VAN) 240 ML LIQUID PO SCH ×2 (09:27→17:39)
--- NOTE | 2022-05-01 10:53 | NUR ---
JONH Family Contact: SW contacted pt' niece, Breanne ([phone]) and discussed pt's discharge plan to [facility] ([phone]) [address] [place] [address] on Wednesday. Breanne stated she will be providing the DPOA paperwork again by email today. JOHN will continue to update Breanne as needed. Breanne is agreeable and grateful for everything.
[2022-05-01] MEDS: VENLAFAXINE XR 150 MG CAP.SR.24H PO SCH (13:00)
--- NOTE | 2022-05-01 15:07 | NUR ---
Gps/Fur Tinter- Stayed up in his recliner chair during the day, assisted with his meals, fluids encouraged, offered, compliant with routine medications . Stayed in his group activity , interacts when engaged.
[2022-05-01 16:00] VITALS: BP 84/50
[2022-05-01 20:13] VITALS: BP 90/60
[2022-05-01] MEDS: OLANZAPINE 5 MG TABLET PO SCH (20:24)
[2022-05-02] MEDS: REMEDY ESSENTIAL ZINC PASTE 113 GM TOP PRN ×2 (01:45→06:02)
[2022-05-02] MEDS: PANTOPRAZOLE SODIUM 40 MG TABLET.DR PO SCH (06:02)
--- NOTE | 2022-05-02 06:33 | NUR ---
GPS: Pt.slept 6.30 last night. Isolative,passive and remains delusional. Re-assured and re-directed. Denies SI. Fall precautions observed. Fluids/diet inna.well.
[2022-05-02 07:59] VITALS: BP 101/63
[2022-05-02] MEDS: FERROUS SULFATE 325 MG TABEC PO SCH ×2 (08:17→20:27)
[2022-05-02] MEDS: DIVALPROEX SPRINKLE 125 MG CAP.SPRINK PO SCH ×3 (08:17→16:29)
[2022-05-02] MEDS: MULTIVITAMINS,THERAPEUTIC TABLET PO SCH (08:17)
[2022-05-02] MEDS: ENSURE ENLIVE (VAN) 240 ML LIQUID PO SCH ×2 (08:18→16:29)
[2022-05-02] MEDS: VENLAFAXINE XR 150 MG CAP.SR.24H PO SCH (12:34)
[2022-05-02] MEDS: BISACODYL 5 MG TABLET.DR PO PRN (12:34)
--- NOTE | 2022-05-02 14:13 | NUR ---
GPS: Nursing Notes: Mood Disturbance: Depression: Patient is awake and responding to her name, disoriented, depressed mood and flat affect, needs assistance with ADL's, low energy level, resistant with nursing care, gets easily irritable when redirected, unable to formulate a viable plan for self care, continue to monitor for safety, continue with treatment plan.
[2022-05-02 16:22] VITALS: BP 98/55
[2022-05-02 20:00] VITALS: BP 90/60
[2022-05-02] MEDS: OLANZAPINE 5 MG TABLET PO SCH (20:27)
--- NOTE | 2022-05-02 21:00 | NUR ---
RECEIVED PATIENT IN HIS ROOM IN BED. HE IS AWAKE NOTED A/O X 2. HE IS CALM AND PLEASANT UPON APPROACHED. PATIENT IS NOTED LESS PARANOID LESS DELUSIONAL. HE IS ABLE TO MAKE EYE CONTACT WITH THIS MEDICAID BILLER AND ABLE TO VERBALIZED HIS FEELINGS. HIS AFFECT IS BLUNTED, MOOD IS LOW. HE DENIED SI/HI//AH. HE IS REASSURED FOR HIS SAFETY. V/S ARE STABLE. PT HAD 2 BOTTLES OF ENSURE PLUS AND SOME GRAM CRACKERS. HE IS EATING BETTER. OPTIFOAM DRESSING ON COCCYX TO PREVENT SKIN BREAKDOWN IS IN PLACE. SAFETY AND FALL PRECAUTIONS ARE IN PLACE. ALL HIS NEEDS ARE MET. WILL CONTINUE TO MONITOR.
[2022-05-03] MEDS: PANTOPRAZOLE SODIUM 40 MG TABLET.DR PO SCH (06:52)
[2022-05-03 08:15] VITALS: BP 91/53
[2022-05-03] MEDS: DIVALPROEX SPRINKLE 125 MG CAP.SPRINK PO SCH ×3 (08:34→16:12)
[2022-05-03] MEDS: MULTIVITAMINS,THERAPEUTIC TABLET PO SCH (08:34)
[2022-05-03] MEDS: FERROUS SULFATE 325 MG TABEC PO SCH ×2 (08:34→20:15)
[2022-05-03] MEDS: BISACODYL 5 MG TABLET.DR PO PRN (08:34)
[2022-05-03] MEDS: ENSURE ENLIVE (VAN) 240 ML LIQUID PO SCH ×2 (08:34→16:12)
[2022-05-03] MEDS: VENLAFAXINE XR 150 MG CAP.SR.24H PO SCH (12:26)
[2022-05-03 12:58] LABS: CREATININE 0.9 mg/dL (0.6-1.3); POTASSIUM 4.1 mmol/L (3.5-5.1)
--- NOTE | 2022-05-03 14:15 | NUR ---
GPS: Nursing Notes: Mood Disturbance: Depression: Patient is awake and responding to his name, no interactions with peers, isolative and withdrawn in his room, impaired judgment, resistant with nursing care, unable to formulate a viable plan for self care, depressed mood and flat affect, low energy level, resistant with nursing care, denies SI, continue to monitor for safety, continue with treatment plan.
[2022-05-03 16:15] VITALS: BP 105/75
[2022-05-03 20:13] VITALS: BP 90/62
[2022-05-03] MEDS: MAGNESIUM HYDROXIDE 30 ML LIQUID UDC PO PRN (20:14)
[2022-05-03] MEDS: OLANZAPINE 5 MG TABLET PO SCH (20:14)
--- NOTE | 2022-05-03 21:05 | NUR ---
RECEIVED PATIENT IN HIS ROOM IN BED. HE IS NOTED AWAKE A/O X 2. HE IS CALM AND PLEASANT UPON APPROACHED. PATIENT IS ABLE TO MAKE EYE CONTACT WITH THIS CAR RUNNER AND ABLE TO VERBALIZED HIS FEELINGS. HIS AFFECT IS BLUNTED, MOOD IS LOW. HE DENIED SI/HI//AH. PT IS AWARE OF HIS IMPENDING DISCHARGED. HE WAS GIVEN MOM TO HELP HIM HAVE A BM. HE IS REASSURED FOR HIS SAFETY. V/S ARE STABLE. PT HAD 1 BOTTLES OF ENSURE PLUS. HE IS COMPLIANT WITH HIS [facility] MEDICATION REGIMENT. OPTIFOAM DRESSING ON COCCYX TO PREVENT SKIN BREAKDOWN IS IN PLACE. SAFETY AND FALL PRECAUTIONS ARE IN PLACE. ALL HIS NEEDS ARE MET. WILL CONTINUE TO MONITOR.
[2022-05-04] MEDS: PANTOPRAZOLE SODIUM 40 MG TABLET.DR PO SCH (06:31)
[2022-05-04 07:52] VITALS: BP 77/51
[2022-05-04] MEDS: ENSURE ENLIVE (VAN) 240 ML LIQUID PO SCH ×2 (08:22→16:35)
[2022-05-04] MEDS: DIVALPROEX SPRINKLE 125 MG CAP.SPRINK PO SCH ×3 (08:22→16:35)
[2022-05-04] MEDS: MULTIVITAMINS,THERAPEUTIC TABLET PO SCH (08:22)
[2022-05-04] MEDS: FERROUS SULFATE 325 MG TABEC PO SCH ×2 (08:22→20:00)
[2022-05-04 09:45] VITALS: BP_SYST 79; BP_SYST 82; BP_SYST 96; BP_DIAS 46; BP_DIAS 65
[2022-05-04 10:50] LABS: HEMATOCRIT 33.9 % (36.7-47.1); MEAN CORPUSCULAR HEMOGLOBIN 30.2 uug (23.8-33.4); MEAN CORPUSCULAR VOLUME 90.9 fL (73.0-96.2); PLATELET COUNT (AUTO) 311 K/uL (152-348)
[2022-05-04] MEDS ORDERED: IV NS 1000 ML 1,000 ML IV ONE ×2 (11:00→14:00)
[2022-05-04 11:07] LABS: BILIRUBIN,TOTAL 0.6 mg/dL (0.2-1.0); CREATININE 0.8 mg/dL (0.6-1.3); MAGNESIUM 2.3 mg/dL (1.8-2.4); TOTAL PROTEIN, SERUM 6.6 g/dL (6.4-8.2)
[2022-05-04] MEDS: VENLAFAXINE XR 150 MG CAP.SR.24H PO SCH (12:22)
[2022-05-04 13:00] VITALS: BP_SYST 102; BP_SYST 110; BP_DIAS 61; BP_DIAS 65
[2022-05-04 13:17] LABS: *BILIRUBIN,URIN NEGATIVE (NEGATIVE); *BLOOD, URINE NEGATIVE (NEGATIVE); *CLARITY,URINE CLEAR (CLEAR); *COLOR,URINE YELLOW (YELLOW); *KETONES,URINE NEGATIVE (NEGATIVE); *UROBILINOGEN,URINE 0.2 E.U./dl (NORMAL); LEUKOCYTE ESTERASE ,URINE NEGATIVE (NEGATIVE); NITRITE, URINE NEGATIVE (NEGATIVE); PH,URINE 6.5 (5.0-8.0); UGLUCOSE NEGATIVE (NEGATIVE)
--- NOTE | 2022-05-04 14:52 | NUR ---
JOHN Family Contact: SW contacted pt' niece, Breanne ([phone]) and informed her that the pt's discharge plan to [facility] ([phone]) [address] [place] [address] is postponed until further notice due to pt's low blood pressure. Breanne is aware and grateful for the update.
--- NOTE | 2022-05-04 14:55 | NUR ---
GPS: Nursing Notes: Mood Disturbance: Depression: Patient is awake and responding to his name, depressed mood and flat affect, minimal interactions with staff, isolative and withdrawn in his room, minimal participation in therapeutic groups, unkempt appearance, resistant with nursing care, poor grooming, unable to formulate a viable plan for self carer, continue to monitor for safety, continue with treatment plan.
[2022-05-04 15:57] VITALS: BP_SYST 104; BP_SYST 96; BP_SYST 99; BP_DIAS 61; BP_DIAS 65; BP_DIAS 72
--- NOTE | 2022-05-04 15:57 | NUR ---
GPS: Nursing Notes: Low B/P: At 09:45 patient's B/P =77/51, Dr. Luna informed of patient's condition, and discharge was canceled. John Marlow NP informed of low B/P and ordered UA, CBC, and 2 bags of NS via IV bolus, second bag finished at this time, orthostatic B/P: Lying = 99/65, sitting = 96/61, and standing = 104/62. John Marlow informed of orthostatic B/P, and ordered to remove heplock and encourage fluid intake. Patient continue to respond to verbal commands with brighter affect, continue to monitor for safety, continue with treatment plan.
[2022-05-04 16:41] VITALS: BP 104/72
[2022-05-04 19:57] VITALS: BP 92/62
[2022-05-04] MEDS: OLANZAPINE 5 MG TABLET PO SCH (20:01)
[2022-05-04] MEDS: TEMAZEPAM 7.5 MG CAPSULE PO PRN (22:16)
[2022-05-05] MEDS: LORAZEPAM 0.5 MG TABLET PO PRN (00:30)
[2022-05-05] MEDS: PANTOPRAZOLE SODIUM 40 MG TABLET.DR PO SCH (06:10)
--- NOTE | 2022-05-05 06:27 | NUR ---
GPS NOTES: Patient is restless and trying to get out gerichair for safety. Constant redirection needed, non-directable. Patent no concept of reality, ATIVAN given and Temazepam. Patient slept 2.15H. No distress noted. Safety strategies in placed.
[2022-05-05 08:09] VITALS: BP 98/68
[2022-05-05] MEDS: FERROUS SULFATE 325 MG TABEC PO SCH (08:40)
[2022-05-05] MEDS: MULTIVITAMINS,THERAPEUTIC TABLET PO SCH (08:40)
[2022-05-05] MEDS: ENSURE ENLIVE (VAN) 240 ML LIQUID PO SCH ×2 (08:40→17:09)
[2022-05-05] MEDS: DIVALPROEX SPRINKLE 125 MG CAP.SPRINK PO SCH ×3 (08:40→17:08)
[2022-05-05] MEDS ORDERED: MEGESTROL ACETATE 20 MG TABLET PO SCH (10:15)
[2022-05-05 10:53] LABS: HEMATOCRIT 26.8 % (36.7-47.1); MEAN CORPUSCULAR HEMOGLOBIN 30.7 uug (23.8-33.4); PLATELET COUNT (AUTO) 182 K/uL (152-348)
[2022-05-05 11:00] LABS: CREATININE 0.7 mg/dL (0.6-1.3); POTASSIUM 3.8 mmol/L (3.5-5.1)
[2022-05-05] MEDS: VENLAFAXINE XR 150 MG CAP.SR.24H PO SCH (12:24)
--- NOTE | 2022-05-05 15:19 | NUR ---
GPS: Nursing Notes: Mood Disturbance: Depression: Patient is awake and responding to his name, cooperative with nursing care, depressed mood, blunted affect, interactive with staff, participating in therapeutic groups, argumentative at times, but following staff directions, unable to formulate a viable plan for self carer, unkempt appearance, continue with treatment plan.
[2022-05-05 16:00] VITALS: BP 90/52
[2022-05-05] MEDS ORDERED: DRONABINOL 2.5 MG CAPSULE PO SCH (17:00)
--- NOTE | 2022-05-05 18:15 | NUR ---
GPS: Nursing Notes: Discharge to 3rd. Floor: Patient is awake and responding to his name, cooperative with nursing care, compliant with his medications, denies SI/HI, denies AH/VH, denies pain or discomfort, denies SOB, Per Dr. Luna, discontinue [id number], discharge to 3rd. floor - Med Surg. Room # 312. Kyle Ariza, QUEENIE - Admitting Dx: Possible GI Bleeding, report given to admitting nurse - HAIM Sevilla. Patient took all his belonging with him.
--- NOTE | 2022-05-06 09:15 | NUR ---
SW TRANSFER NOTE: Pt was discharged from MHU on 05/05/22 to med floor due to GI bleed per report. Prior to discharge from U, pt has an accepting facility to [facility] located at [address] [place] [address] confirmed by Serina leon ([phone]) upon discharge. Pt has an actively involved DPOA who is the pt's niece, Breanne ([phone]). Breanne is aware and agreeable with the pt's discharge plan as she requested for pt to be close to family.
== END 2022-05-05 18:15 | disposition short-term general hospital (02) | DRG 885 ==
LOC: ER 16:17 → GPS 19:00
PROVIDERS: ADMIT Psychiatry & Neurology Psychosomatic Medicine; ATTEND Nurse Practitioner Acute Care
DX: F31.5 Bipolar disorder, current episode depressed, severe, with psychotic features (principal); N17.9 Acute kidney failure, unspecified; R45.851 Suicidal ideations; E44.0 Moderate protein-calorie malnutrition; Z68.1 Body mass index [BMI] 19.9 or less, adult; F41.1 Generalized anxiety disorder; Z91.14 Patient's other noncompliance with medication regimen; Z91.51 Personal history of suicidal behavior; Z88.0 Allergy status to penicillin; K21.9 Gastro-esophageal reflux disease without esophagitis; Z86.19 Personal history of other infectious and parasitic diseases; R62.7 Adult failure to thrive; Z20.822 Contact with and (suspected) exposure to COVID-19; Z79.899 Other long term (current) drug therapy; R94.6 Abnormal results of thyroid function studies; D64.9 Anemia, unspecified; E86.0 Dehydration; E83.39 Other disorders of phosphorus metabolism; I95.2 Hypotension due to drugs; T43.505A Adverse effect of unspecified antipsychotics and neuroleptics, initial encounter; Y92.89 Other specified places as the place of occurrence of the external cause; J44.9 Chronic obstructive pulmonary disease, unspecified; M89.8X9 Other specified disorders of bone, unspecified site; Z87.828 Personal history of other (healed) physical injury and trauma; R41.9 Unspecified symptoms and signs involving cognitive functions and awareness; F19.10 Other psychoactive substance abuse, uncomplicated; F10.10 Alcohol abuse, uncomplicated; Z87.19 Personal history of other diseases of the digestive system
CPT/HCPCS: 36415; 70450; 71045; 82747; 83550; 83735; 83970; 84100; 84155; 84165; 84443; 84481; 85014; 85025; 93005; A4663; A6209; A6213; G0480; J7040; Q0167

== ENCOUNTER 2022-05-05 18:16 | Inpatient (IN) | payer MEDICARE, OTHER ==
[~2022-05-05] VITALS: Ht 177.8 cm; Wt 49.0 kg
[~2022-05-05 18:16] MED LIST: ACET-2154 PO; ALBU2.5V13 NEB; BISA10SU61 RC; BISA5TAB10 PO; FERR325T28 PO; HYDR-4209 PO; MAGN400O6 PO; MULT-594 PO; MV-M1TAB18 PO; ONDA4TAB5 PO; PANT40TA2 PO; PHOS250T2 PO; SENN8.6T19 PO
[2022-05-05 19:01] VITALS: BP 76/49
[2022-05-05 20:00] VITALS: BP 81/51
--- NOTE | 2022-05-05 20:45 | NUR ---
Admitted patient in Tele floor, from MHU for dx of GI Bleed, Poor po intake, under the care of Cm Ariza STRATEGY PLANNING CONSULTANT,, patient alert oriented, but underweight, with low BP, body check was done with multiple bruise on R/L upper extremities, chest, back, sacrum, generalized body skin dryness, facial redness/rashes, stated he's weak on lower extremities. Patient appears calm and cooperative at this time, oriented to call lights and to room, cont to monitor.
[2022-05-05] MEDS ORDERED: BISACODYL 10 MG SUPP.RECT RC PRN (22:45)
[2022-05-05] MEDS ORDERED: BISACODYL 5 MG TABLET.DR PO PRN (22:45)
[2022-05-05] MEDS ORDERED: LORAZEPAM 0.5 MG TABLET PO PRN (22:45)
[2022-05-05] MEDS ORDERED: MAGNESIUM HYDROXIDE 30 ML LIQUID UDC PO PRN (22:45)
[2022-05-05] MEDS ORDERED: ACETAMINOPHEN 325 MG TABLET PO PRN (22:45)
[2022-05-05] MEDS ORDERED: MAG HYDROX/AL HYDROX/SIMETH 30 ML LIQUID UDC PO PRN (22:45)
[2022-05-05] MEDS ORDERED: IV NS 1000 ML 1,000 ML IV ONE (22:45)
[2022-05-05] MEDS ORDERED: TEMAZEPAM 7.5 MG CAPSULE PO PRN (22:45)
[2022-05-05] MEDS ORDERED: ONDANSETRON HCL 4 MG TABLET PO PRN (22:45)
[2022-05-05] MEDS ORDERED: SENNOSIDES 1 TABLET PO PRN (22:45)
[2022-05-06] VITALS: BP 89/53
[2022-05-06 04:00] VITALS: BP 87/56
[2022-05-06] MEDS: PANTOPRAZOLE SODIUM 40 MG TABLET.DR PO SCH (06:14)
[2022-05-06 06:55] LABS: BILIRUBIN,TOTAL 0.4 mg/dL (0.2-1.0); CREATININE 0.7 mg/dL (0.6-1.3); POTASSIUM 4.1 mmol/L (3.5-5.1); TOTAL PROTEIN, SERUM 5.1 g/dL (6.4-8.2)
[2022-05-06] MEDS: FERROUS SULFATE 325 MG TABEC PO SCH ×2 (08:31→21:16)
[2022-05-06] MEDS: MULTIVITAMINS,THERAPEUTIC TABLET PO SCH (08:31)
[2022-05-06] MEDS: DIVALPROEX SPRINKLE 125 MG CAP.SPRINK PO SCH ×3 (08:31→17:01)
[2022-05-06] MEDS ORDERED: IV LACTATED RINGERS SOLUTION 1,000 ML IV ONE (09:00)
--- NOTE | 2022-05-06 09:16 | NUR ---
SW TRANSFER NOTE: Pt was discharged from MHU on 05/05/22 to med floor due to gi bleed per report. Prior to discharge from U, pt has an accepting facility to [facility] located at [address] [place] [address] confirmed by Serina leon ([phone]) upon discharge. Pt has an actively involved DPOA who is the pt's niece, Breanne ([phone]). Breanne is aware and agreeable with the pt's discharge plan as she requested for pt to be close to family.
[2022-05-06] MEDS: REMEDY ESSENTIAL ZINC PASTE 113 GM TOP SCH ×2 (09:37→21:20)
[2022-05-06] MEDS: ENSURE CLEAR 240 ML LIQUID (MIX BERRY) PO SCH ×2 (09:44→17:01)
[2022-05-06 09:59] LABS: HEMATOCRIT 24.8 % (36.7-47.1); MEAN CORPUSCULAR HEMOGLOBIN 30.7 uug (23.8-33.4); MEAN CORPUSCULAR VOLUME 91.5 fL (73.0-96.2); PLATELET COUNT (AUTO) 191 K/uL (152-348)
[2022-05-06 10:07] LABS: IRON, SERUM 24 ug/dL (50-175)
[2022-05-06 10:39] LABS: FERRITIN 349 ng/mL (26-388)
[2022-05-06] MEDS: LEVOTHYROXINE SODIUM 25 MCG TABLET PO SCH (11:54)
[2022-05-06] MEDS: DRONABINOL 2.5 MG CAPSULE PO SCH ×2 (11:54→17:00)
[2022-05-06 12:00] VITALS: BP 130/81
--- NOTE | 2022-05-06 12:44 | NUR ---
WOUND CARE CONSULT: PT PRESENTS VERY THIN AND BONY WITH SACRAL BONY AREA WITH BLANCHABLE REDNESS,PRESENT ON ADMISSION. RECOMMENDATIONS MADE FOR SKIN PROTECTION. DISCUSSED WITH NURSING STAFF.MD IN AGREEMENT WITH PLAN OF CARE.
[2022-05-06] MEDS: VENLAFAXINE XR 150 MG CAP.SR.24H PO SCH (12:57)
--- NOTE | 2022-05-06 14:35 | NUR ---
NEW ORDER NOTED FROM QUEENIE SWANN FOR CT ABDOMEN AND PELVIS TODAY.
[2022-05-06 16:00] VITALS: BP 94/58
--- NOTE | 2022-05-06 18:14 | NUR ---
CALLED THE RADIOLOGY RE WHEN THE CT ABDOMEN AND PELVIS WILL BE DONE AND THEY STATED WILL BE HERE SOON TO TAKE HIM
[2022-05-06] MEDS ORDERED: IOHEXOL 300MG/ML 100 ML INFUS..BTL ONE (18:26)
[2022-05-06] MEDS ORDERED: SWABABLE VALVE TRANSFER SET EA MC ONE (18:26)
[2022-05-06] MEDS ORDERED: IV NORMAL SALINE 250 ML IV ONE (18:27)
[2022-05-06 20:00] VITALS: BP 101/60
[2022-05-06] MEDS: OLANZAPINE 5 MG TABLET PO SCH (21:19)
[2022-05-07] VITALS: BP 112/77
[2022-05-07 04:00] VITALS: BP 87/60
[2022-05-07] MEDS: LEVOTHYROXINE SODIUM 25 MCG TABLET PO SCH (06:31)
[2022-05-07] MEDS: PANTOPRAZOLE SODIUM 40 MG TABLET.DR PO SCH (06:31)
[2022-05-07 07:02] LABS: HEMATOCRIT 27.3 % (36.7-47.1); MEAN CORPUSCULAR HEMOGLOBIN 30.9 uug (23.8-33.4); MEAN CORPUSCULAR VOLUME 91.3 fL (73.0-96.2); PLATELET COUNT (AUTO) 196 K/uL (152-348)
[2022-05-07 07:19] LABS: BILIRUBIN,DIRECT 0.2 mg/dL (0.0-0.2); BILIRUBIN,TOTAL 0.7 mg/dL (0.2-1.0); CREATININE 0.8 mg/dL (0.6-1.3); MAGNESIUM 1.9 mg/dL (1.8-2.4); PHOSPHOROUS 3.5 mg/dL (2.5-4.9); POTASSIUM 3.8 mmol/L (3.5-5.1); TOTAL PROTEIN, SERUM 5.3 g/dL (6.4-8.2)
[2022-05-07] MEDS: DIVALPROEX SPRINKLE 125 MG CAP.SPRINK PO SCH ×3 (08:52→16:37)
[2022-05-07] MEDS: FERROUS SULFATE 325 MG TABEC PO SCH ×2 (08:52→21:23)
[2022-05-07] MEDS: MULTIVITAMINS,THERAPEUTIC TABLET PO SCH (08:52)
[2022-05-07] MEDS: ENSURE CLEAR 240 ML LIQUID (MIX BERRY) PO SCH ×2 (08:54→16:38)
[2022-05-07] MEDS: REMEDY ESSENTIAL ZINC PASTE 113 GM TOP SCH ×2 (08:54→21:24)
--- NOTE | 2022-05-07 09:18 | NUR ---
JOHN DPOA Contact: JOHN spoke with pt's DPOA who is the pt's niece, Breanne ([phone]). Breanne requested via email for staff to trim his hand and feet nails. Breanne also requested for pt to be put in clean clothes and not kept in a gown for the duration of the hospitalization. Breanne was informed by this SW that he is still on the 3rd floor. This SW informed Breanne that the third floor is aware [facility] [place] [address] upon discharge confirmed by Kalyn leon [phone] and Serina ([phone]).
--- NOTE | 2022-05-07 10:00 | NUR ---
PATIENT SEEN AND EXAMINED BY DR RUBI WITH NO NEW ORDERS AT THIS TIME.
[2022-05-07] MEDS: DRONABINOL 2.5 MG CAPSULE PO SCH ×2 (11:23→16:37)
[2022-05-07] MEDS ORDERED: BISACODYL 5 MG TABLET.DR PO PRN (11:45)
[2022-05-07] MEDS ORDERED: SENNOSIDES 1 TABLET PO PRN (11:45)
[2022-05-07] MEDS ORDERED: MAGNESIUM HYDROXIDE 30 ML LIQUID UDC PO PRN (11:45)
[2022-05-07 11:50] VITALS: BP 102/70
[2022-05-07] MEDS: VENLAFAXINE XR 150 MG CAP.SR.24H PO SCH (12:06)
[2022-05-07] MEDS ORDERED: DOCU-141 PO (12:12)
[2022-05-07] MEDS ORDERED: VENL150C2 PO (12:12)
[2022-05-07] MEDS ORDERED: DIVA125C2 PO (12:12)
[2022-05-07] MEDS ORDERED: SENN-175 PO (12:12)
[2022-05-07] MEDS ORDERED: LEVO25TA9 PO (12:12)
[2022-05-07] MEDS ORDERED: OLAN5TAB70 PO (12:12)
[2022-05-07] MEDS: SENNOSIDES 1 TABLET PO SCH (13:20)
[2022-05-07 15:10] VITALS: BP 101/69
--- NOTE | 2022-05-07 18:00 | NUR ---
PATIENT HAS A DISCHARGE ORDER BUT PER THE CANAL BOAT CAPTAIN PATIENT HAS NO PLACEMENT AT THIS TIME WILL SEARCH TOMORROW FOR PLACEMENT.
[2022-05-07 20:00] VITALS: BP 96/39
[2022-05-07] MEDS: DOCUSATE SODIUM 100 MG CAPSULE PO SCH (21:23)
[2022-05-07] MEDS: OLANZAPINE 5 MG TABLET PO SCH (21:24)
[2022-05-08] VITALS (7 sets, daily range): BP systolic 81–102; BP diastolic 45–59
[2022-05-08] MEDS: PANTOPRAZOLE SODIUM 40 MG TABLET.DR PO SCH (06:17)
[2022-05-08] MEDS: LEVOTHYROXINE SODIUM 25 MCG TABLET PO SCH (06:17)
--- NOTE | 2022-05-08 07:30 | NUR ---
Sleeping, appears comfortable.
[2022-05-08] MEDS: DIVALPROEX SPRINKLE 125 MG CAP.SPRINK PO SCH ×3 (08:58→17:17)
[2022-05-08] MEDS: FERROUS SULFATE 325 MG TABEC PO SCH ×2 (08:58→20:45)
[2022-05-08] MEDS: REMEDY ESSENTIAL ZINC PASTE 113 GM TOP SCH ×2 (08:59→20:46)
[2022-05-08] MEDS: ENSURE CLEAR 240 ML LIQUID (MIX BERRY) PO SCH (08:59)
[2022-05-08] MEDS: SENNOSIDES 1 TABLET PO SCH (08:59)
[2022-05-08] MEDS: MULTIVITAMINS,THERAPEUTIC TABLET PO SCH (08:59)
[2022-05-08] MEDS ORDERED: IV NORMAL SALINE 500 ML IV ONE (10:30)
--- NOTE | 2022-05-08 10:30 | NUR ---
BP 77/48, patient reports feeling weak and dizzy. NS 500 IV bolus started. DC cancelled, spoke with Elvie from [facility] about discharge cancellation.Will continue to monitor
[2022-05-08] MEDS ORDERED: MAGNESIUM CITRATE 296 ML BOTTLE PO ONE (10:45)
[2022-05-08] MEDS ORDERED: LACTULOSE 20 G/30 ML LIQUID UDC PO ONE (11:00)
[2022-05-08 11:13] LABS: HEMATOCRIT 30.2 % (36.7-47.1); MEAN CORPUSCULAR HEMOGLOBIN 30.1 uug (23.8-33.4); MEAN CORPUSCULAR VOLUME 92.3 fL (73.0-96.2); PLATELET COUNT (AUTO) 218 K/uL (152-348)
[2022-05-08 11:27] LABS: CREATININE 0.8 mg/dL (0.6-1.3); PHOSPHOROUS 3.5 mg/dL (2.5-4.9); POTASSIUM 3.9 mmol/L (3.5-5.1)
[2022-05-08] MEDS: MIDODRINE HCL 2.5 MG TABLET PO SCH ×3 (11:30→22:07)
--- NOTE | 2022-05-08 11:51 | NUR ---
Midodrine po given as ordered. BP 81/56. No BM since admission. Lactulose given as ordered.
[2022-05-08] MEDS: IV NS 1000 ML 1,000 ML IV PRN (12:41)
[2022-05-08] MEDS: VENLAFAXINE XR 150 MG CAP.SR.24H PO SCH (12:42)
[2022-05-08] MEDS: ENSURE ENLIVE (VAN) 240 ML LIQUID PO SCH ×2 (14:30→17:17)
--- NOTE | 2022-05-08 15:15 | NUR ---
Latest BP 87/56. Hospitalist updated. IVF Infusing.
[2022-05-08] MEDS ORDERED: REMEDY ESSENTIAL ZINC PASTE 113 GM TOP PRN (16:15)
--- NOTE | 2022-05-08 17:58 | NUR ---
Latest BP 102/59, HR 67. Patient with poor appetite but drinking the supplement. IVF maintained, infusing well. Incontinence care done skin care. Repositioned comfortably.
[2022-05-08] MEDS: OLANZAPINE 5 MG TABLET PO SCH (20:45)
[2022-05-08] MEDS: DOCUSATE SODIUM 100 MG CAPSULE PO SCH (20:45)
[2022-05-09] VITALS (8 sets, daily range): BP systolic 78–121; BP diastolic 45–82
[2022-05-09] MEDS: IV NS 1000 ML 1,000 ML IV PRN (03:20)
[2022-05-09] MEDS: MIDODRINE HCL 2.5 MG TABLET PO SCH ×2 (05:18→13:21)
[2022-05-09 05:41] LABS: HEMATOCRIT 28.7 % (36.7-47.1); MEAN CORPUSCULAR HEMOGLOBIN 30.9 uug (23.8-33.4); MEAN CORPUSCULAR VOLUME 91.3 fL (73.0-96.2); PLATELET COUNT (AUTO) 223 K/uL (152-348)
[2022-05-09 05:55] LABS: CREATININE 0.8 mg/dL (0.6-1.3); MAGNESIUM 1.9 mg/dL (1.8-2.4); PHOSPHOROUS 3.5 mg/dL (2.5-4.9); POTASSIUM 3.8 mmol/L (3.5-5.1)
[2022-05-09] MEDS: PANTOPRAZOLE SODIUM 40 MG TABLET.DR PO SCH (06:08)
[2022-05-09] MEDS: LEVOTHYROXINE SODIUM 25 MCG TABLET PO SCH (06:08)
[2022-05-09] MEDS: FERROUS SULFATE 325 MG TABEC PO SCH ×2 (08:37→20:59)
[2022-05-09] MEDS: SENNOSIDES 1 TABLET PO SCH (08:37)
[2022-05-09] MEDS: DIVALPROEX SPRINKLE 125 MG CAP.SPRINK PO SCH ×3 (08:37→16:34)
[2022-05-09] MEDS: MULTIVITAMINS,THERAPEUTIC TABLET PO SCH (08:43)
[2022-05-09] MEDS: REMEDY ESSENTIAL ZINC PASTE 113 GM TOP SCH ×2 (08:46→20:59)
[2022-05-09] MEDS: ENSURE ENLIVE (VAN) 240 ML LIQUID PO SCH ×2 (09:02→16:34)
[2022-05-09] MEDS: FLUDROCORTISONE ACETATE 0.1 MG TABLET PO SCH (09:26)
[2022-05-09] MEDS ORDERED: LACTULOSE 20 G/30 ML LIQUID UDC PO ONE (09:45)
--- NOTE | 2022-05-09 10:30 | NUR ---
NOTIFIED PATIENT THAT SHE HAS AN ORDER FOR LACTULOSE TO ASSIST HER WITH HAVING A BOWEL MOVEMENT AND HE STATED THAT HE WILL NOT TAKE IT NOW WILL WAITH TILL THIS AFTERNOON AND WILL TAKE IT ID=F HE DID NOT HAVE A BOWEL MOVEMENT BY THEN BASED ON THE FACT THAT HE ALREADY TOOL SENOKOT AND MILK OS MAGNESIA.
[2022-05-09] MEDS: VENLAFAXINE XR 150 MG CAP.SR.24H PO SCH (13:13)
[2022-05-09] MEDS ORDERED: IV NORMAL SALINE 500 ML IV ONE (16:00)
--- NOTE | 2022-05-09 16:00 | NUR ---
BLOOD PRESSURE AT THIS TIME IS 78/51 AND RECHECKED AND ITS 88/52 LINDA SWANN MANUFACTURER'S SERVICE REPRESENTATIVE NOTIFIED WITH ORDERS FOR IVF BOLUS AND TO INCREASE THE DOSE OF THE MIDODRINE AND NOTED.PATIENT IS ASSYMPTOMATIC DENIES FEELING DIZZY WILL CONTINUE TO OBSERVE.
--- NOTE | 2022-05-09 18:19 | NUR ---
IVF BOLUS IS IN PROGRESS AT THIS TIME.
[2022-05-09] MEDS: DOCUSATE SODIUM 100 MG CAPSULE PO SCH (20:59)
[2022-05-09] MEDS: OLANZAPINE 5 MG TABLET PO SCH (20:59)
[2022-05-09] MEDS: MIDODRINE HCL 5 MG TABLET PO SCH (21:24)
[2022-05-09] MEDS ORDERED: MIDODRINE HCL 2.5 MG TABLET PO SCH (22:00)
[2022-05-10 04:14] VITALS: BP 100/66
[2022-05-10] MEDS: MIDODRINE HCL 5 MG TABLET PO SCH ×3 (06:01→22:29)
[2022-05-10] MEDS: LEVOTHYROXINE SODIUM 25 MCG TABLET PO SCH (06:01)
[2022-05-10] MEDS: PANTOPRAZOLE SODIUM 40 MG TABLET.DR PO SCH (06:10)
[2022-05-10 07:27] LABS: HEMATOCRIT 28.4 % (36.7-47.1); MEAN CORPUSCULAR HEMOGLOBIN 30.7 uug (23.8-33.4); MEAN CORPUSCULAR VOLUME 91.9 fL (73.0-96.2); PLATELET COUNT (AUTO) 239 K/uL (152-348)
[2022-05-10 07:32] LABS: CREATININE 0.7 mg/dL (0.6-1.3); MAGNESIUM 2.2 mg/dL (1.8-2.4); PHOSPHOROUS 2.5 mg/dL (2.5-4.9); POTASSIUM 4.1 mmol/L (3.5-5.1)
--- NOTE | 2022-05-10 08:00 | NUR ---
RECEIVED PATIENT IN BED AWAKE VERBALLY RESPONDS WHEN SPOKEN TO ABLE TO MAKE SIMPLE NEEDS KNOWN HIS BLOOD PRESSURE CONTINUES TO FLUCTUATE TO LOW NORMAL TO VERY LOW FLUIDS ENCOURGED WILL CONTINUE TO OBSERVE.
[2022-05-10] MEDS: MULTIVITAMINS,THERAPEUTIC TABLET PO SCH (08:26)
[2022-05-10] MEDS: SENNOSIDES 1 TABLET PO SCH (08:26)
[2022-05-10] MEDS: DIVALPROEX SPRINKLE 125 MG CAP.SPRINK PO SCH ×3 (08:27→16:36)
[2022-05-10] MEDS: FERROUS SULFATE 325 MG TABEC PO SCH ×2 (08:27→20:38)
[2022-05-10] MEDS: FLUDROCORTISONE ACETATE 0.1 MG TABLET PO SCH (08:27)
[2022-05-10] MEDS: REMEDY ESSENTIAL ZINC PASTE 113 GM TOP SCH ×2 (08:59→20:39)
[2022-05-10] MEDS: ENSURE ENLIVE (VAN) 240 ML LIQUID PO SCH ×2 (09:00→16:36)
[2022-05-10 12:00] VITALS: BP 98/57
[2022-05-10] MEDS ORDERED: METOCLOPRAMIDE HCL 10 MG TABLET PO SCH (12:00)
[2022-05-10] MEDS: VENLAFAXINE XR 150 MG CAP.SR.24H PO SCH (12:17)
[2022-05-10] MEDS ORDERED: LACTULOSE 20 G/30 ML LIQUID UDC PO PRN (13:30)
--- NOTE | 2022-05-10 13:36 | NUR ---
2 D ECHO COMPLETED ORDERED AND EF IS 55-60 PERCENT WAS SEEN AND EXAMINED BY LINDA SWANN WITH NEW ORDERS AND NOTED.
[2022-05-10 16:00] VITALS: BP 93/55
--- NOTE | 2022-05-10 18:00 | NUR ---
PATIENT FINALLY HAD A BOWEL MOVEMENT RESTING IN BED LATEST BLOOD PRESSURE IS 93/55
[2022-05-10 20:00] VITALS: BP 93/57
[2022-05-10] MEDS: DOCUSATE SODIUM 100 MG CAPSULE PO SCH (20:38)
[2022-05-10] MEDS: OLANZAPINE 5 MG TABLET PO SCH (20:39)
[2022-05-11 04:00] VITALS: BP 95/57
[2022-05-11] MEDS: PANTOPRAZOLE SODIUM 40 MG TABLET.DR PO SCH (06:16)
[2022-05-11] MEDS: MIDODRINE HCL 5 MG TABLET PO SCH ×4 (06:16→22:07)
[2022-05-11] MEDS: LEVOTHYROXINE SODIUM 25 MCG TABLET PO SCH (06:16)
[2022-05-11 06:53] LABS: HEMATOCRIT 26.4 % (36.7-47.1); MEAN CORPUSCULAR VOLUME 91.4 fL (73.0-96.2); PLATELET COUNT (AUTO) 216 K/uL (152-348)
[2022-05-11 07:10] LABS: CREATININE 0.7 mg/dL (0.6-1.3); PHOSPHOROUS 2.4 mg/dL (2.5-4.9); POTASSIUM 3.7 mmol/L (3.5-5.1)
--- NOTE | 2022-05-11 07:39 | NUR ---
ASLEEP IN BED EASILY AROUSABLE ON ROUNDS ON ROOM AIR WITH NO SOB CALL LIGHTS AND PERSONAL BELONGINGS ARE WITHIN EASY REACH AT THIS TIME WILL CONTINUE TO OBSERVE.
[2022-05-11] MEDS: SENNOSIDES 1 TABLET PO SCH (08:52)
[2022-05-11] MEDS: DIVALPROEX SPRINKLE 125 MG CAP.SPRINK PO SCH ×3 (08:52→16:38)
[2022-05-11] MEDS: MULTIVITAMINS,THERAPEUTIC TABLET PO SCH (08:52)
[2022-05-11] MEDS: FLUDROCORTISONE ACETATE 0.1 MG TABLET PO SCH ×2 (08:52→16:38)
[2022-05-11] MEDS: FERROUS SULFATE 325 MG TABEC PO SCH ×2 (08:53→21:07)
[2022-05-11] MEDS: REMEDY ESSENTIAL ZINC PASTE 113 GM TOP SCH ×2 (08:59→21:08)
[2022-05-11] MEDS: ENSURE ENLIVE (VAN) 240 ML LIQUID PO SCH ×2 (09:00→16:38)
--- NOTE | 2022-05-11 10:42 | NUR ---
LINDA SWANN PUBLIC HEALTH REGISTRAR HERE AND SEEN PATIENT WITH ORDER TO GIVE MIDODRINE 10 MG PO NOW AND THEN TO CONTINUE Q6H ROUTINE AND NOTED.GIVEN AT THIS TIME BLOOD PRESSURE IS 93/51
--- NOTE | 2022-05-11 11:49 | NUR ---
DR RUBI HERE SEEN PATIENT WITH NEW ORDERS AND NOTED.
[2022-05-11] MEDS ORDERED: OLAN5TAB70 PO (12:01)
[2022-05-11] MEDS ORDERED: FLUD0.1T3 PO (12:01)
[2022-05-11] MEDS ORDERED: MIDO5TAB4 PO (12:01)
[2022-05-11] MEDS: VENLAFAXINE XR 150 MG CAP.SR.24H PO SCH (12:30)
[2022-05-11 12:58] VITALS: BP 92/47
--- NOTE | 2022-05-11 13:02 | NUR ---
PATIENT IS BEING PREPPED FOR DISCHARGE BACK TO [facility].
[2022-05-11] MEDS ORDERED: NEUTRA PHOS PACKET PO ONE (14:30)
--- NOTE | 2022-05-11 14:30 | NUR ---
BLOOD PRESSURE IS 79/56 RESTING IN BED PLACED ON [address] DR VARGAS HERE NOTIFIED HIM HE SAW PATIENT WITH NEW ORDERS AND NOTED.
[2022-05-11] MEDS ORDERED: MIDODRINE HCL 5 MG TABLET PO ONE (14:45)
[2022-05-11 16:02] VITALS: BP 91/55
--- NOTE | 2022-05-11 18:08 | NUR ---
CURRENT BLOOD PRESSURE IS 91/55 HR 60 EATING DINNER DENIES DISCOMFORTS AT THIS TIME WILL CONTINUE TO OBSERVE.
[2022-05-11 20:50] VITALS: BP 100/59
[2022-05-11] MEDS ORDERED: OLANZAPINE 5 MG TABLET PO SCH (21:00)
[2022-05-11] MEDS: DOCUSATE SODIUM 100 MG CAPSULE PO SCH (21:07)
[2022-05-12 04:20] VITALS: BP 94/48
--- NOTE | 2022-05-12 05:52 | NUR ---
Received patient in bed awake, AAO x3. In no acute distress. IV site on RFA intact and patent. BP-100/59, no c/o headache, no chest pain. Slept well the whole night. Needs attended.
[2022-05-12] MEDS: MIDODRINE HCL 5 MG TABLET PO SCH ×2 (05:59→13:13)
[2022-05-12] MEDS: PANTOPRAZOLE SODIUM 40 MG TABLET.DR PO SCH (06:17)
[2022-05-12] MEDS: LEVOTHYROXINE SODIUM 25 MCG TABLET PO SCH (06:17)
[2022-05-12] MEDS: SENNOSIDES 1 TABLET PO SCH (08:58)
[2022-05-12] MEDS: FLUDROCORTISONE ACETATE 0.1 MG TABLET PO SCH ×2 (08:58→16:54)
[2022-05-12] MEDS: REMEDY ESSENTIAL ZINC PASTE 113 GM TOP SCH (08:58)
[2022-05-12] MEDS: DIVALPROEX SPRINKLE 125 MG CAP.SPRINK PO SCH ×3 (08:58→16:54)
[2022-05-12] MEDS: MULTIVITAMINS,THERAPEUTIC TABLET PO SCH (08:58)
[2022-05-12] MEDS: FERROUS SULFATE 325 MG TABEC PO SCH (08:58)
--- NOTE | 2022-05-12 09:00 | NUR ---
RECEIVED PATIENT IN BED AWAKE ALERT AND VERBALLY RESPONSIVE DENIES PAIN OR DISCOMFORTS AT THIS TIME ON ROOM AIR BLOOD PRESSURE IS STILL FLUCTUATING UP AND DOWN AND MOSTLY DOWN PATIENT IS FOR DISCHARGE TODAY TO [facility] PER THE FILENET ARCHITECT PATIENT WILL BE PICKED UP TODAY ABOUT 1100 WILL CHECK BLOOD PRESSURE TO ENSURE WITHIN NORMAL LIMITS.
[2022-05-12] MEDS: ENSURE ENLIVE (VAN) 240 ML LIQUID PO SCH ×2 (09:03→16:54)
--- NOTE | 2022-05-12 10:30 | NUR ---
PER THE PATTERN DRAFTER HE CANCELLED THE AMBULANCE IT DESKTOP SUPPORT TECHNICIAN FOR 1100 UNKNOWN AT THIS TIME WHAT TIME THE AMBULANCE IT DESKTOP SUPPORT TECHNICIAN WILL BE.
[2022-05-12 11:43] VITALS: BP 91/56
[2022-05-12] MEDS: VENLAFAXINE XR 150 MG CAP.SR.24H PO SCH (12:54)
--- NOTE | 2022-05-12 13:58 | NUR ---
SEEN BY LINDA SWANN WITH NEW ORDERS AND NOTED
[2022-05-12 16:21] VITALS: BP 95/62
--- NOTE | 2022-05-12 16:30 | NUR ---
PER THE SPECIAL POLICE OFFICER COUTURIERE PATIENT WILL BE DISCHARGED TO [facility] WILL BE PICKED UP AT 1930 COVID TEST DONE ORDERED PATIENT AWARE.
--- NOTE | 2022-05-12 17:45 | NUR ---
CALLED [facility] REPORT GIVEN TO FARIDEH FOR CONTINUING CARE.
--- NOTE | 2022-05-12 20:22 | NUR ---
NITESH IS DISCHARGED IN IMPROVED CONDITION; PT PICKED UP BY AMBULANCE PERSONNEL VIA STRETCHER; PAPER WORKS HANDED TO AMBULANCE PERSONNEL.
== END 2022-05-12 20:07 | DRG 314 ==
LOC: MEDSURG3 18:16 → TELE3 21:10 → MEDSURG3 05-08 07:55
PROVIDERS: ADMIT Nurse Practitioner Acute Care; ATTEND Nurse Practitioner Acute Care
DX: I95.9 Hypotension, unspecified (principal); E43 Unspecified severe protein-calorie malnutrition; E27.40 Unspecified adrenocortical insufficiency; E87.1 Hypo-osmolality and hyponatremia; Z68.1 Body mass index [BMI] 19.9 or less, adult; E86.0 Dehydration; D50.9 Iron deficiency anemia, unspecified; K59.00 Constipation, unspecified; R13.10 Dysphagia, unspecified; Z87.828 Personal history of other (healed) physical injury and trauma; Z88.0 Allergy status to penicillin; Z91.51 Personal history of suicidal behavior; K21.9 Gastro-esophageal reflux disease without esophagitis; F32.A Depression, unspecified; F25.0 Schizoaffective disorder, bipolar type; F41.1 Generalized anxiety disorder; K57.90 Diverticulosis of intestine, part unspecified, without perforation or abscess without bleeding; F29 Unspecified psychosis not due to a substance or known physiological condition; F03.90 Unspecified dementia, unspecified severity, without behavioral disturbance, psychotic disturbance, mood disturbance, and anxiety; E88.09 Other disorders of plasma-protein metabolism, not elsewhere classified
CPT/HCPCS: 36415; 82024; 82533; 83550; 83735; 84100; 85025; 93307; A4663; A6209; A6213; G0378; J7040; J7120; Q0167; Q9967